=== PATIENT | female | born 1960 | race Caucasian/White ===

== ENCOUNTER 2018-07-13 17:09 | Emergency (ER) | payer OTHER ==
[~2018-07-13] VITALS: Ht 170.2 cm; Wt 71.0 kg
[~2018-07-13 17:09] MED LIST: FLEXERIL PO; HYDROCODONE-AP1 EAC6 PO; PROZAC20 MG PO
[2018-07-13] MEDS ORDERED: LEXAPRO 10 MG T10 M1 PO (17:35)
[2018-07-13] MEDS ORDERED: DEPAKOTE500 MG PO (17:35)
[2018-07-13] MEDS ORDERED: RISPERDAL 3 MG T3 M1 PO (17:36)
[2018-07-13] MEDS ORDERED: CLONAZEPAM 1 MG1 M1 PO (17:36)
[2018-07-13 17:38] LABS: URINE BILIRUBIN NEGATIVE (Negative); URINE BLOOD TRACE (Negative); URINE CLARITY CLEAR; URINE COLOR YELLOW; URINE GLUCOSE-RANDOM NEGATIVE (Negative); URINE KETONES 1+ (Negative); URINE LEUKOCYTES-REFLEX NEGATIVE (Negative); URINE NITRITE-REFLEX NEGATIVE (Negative); URINE PROTEIN NEGATIVE (Negative)
[2018-07-13 17:46] LABS: HEMATOCRIT 32.6 % (37.0-47.0); HEMOGLOBIN 11.2 gm/dL (12.0-15.0); MCH 32.9 pg (26.0-34.0); MCHC 34.5 g/dL (28.0-37.0); MCV 95.6 fL (80.0-100.0); MPV 8.1 fl. (7.2-11.1); NUCLEATED RBCS 0 /100WBC; PLATELET COUNT* 176 thou/uL (150-400); RBC 3.42 mil/uL (4.20-5.00); RDW-CV 13.9 % (10.5-14.5); WBC 10.7 thou/uL (4.0-11.0)
[2018-07-13 17:53] LABS: SQUAMOUS 0-3 Few /LPF (0-3)
[2018-07-13 17:54] LABS: BACTERIA-REFLEX None Seen /HPF (None Seen); CASTS None Seen /LPF (None Seen); CRYSTALS None Seen /LPF (None Seen); MUCUS 0-3 Light strn/LPF (None Seen); URINE RBC None Seen /HPF (0-2); URINE WBC-REFLEX None Seen /HPF (0-5)
[2018-07-13 18:07] LABS: ABSOLUTE EOSINOPHILS 0.1 thou/uL (0.0-0.7); ABSOLUTE LYMPHOCYTES 0.2 thou/uL (0.8-5.3); ABSOLUTE MONOCYTES 1.1 thou/uL (0.0-1.2); ABSOLUTE NEUTROPHILS 9.3 thou/uL (1.6-8.1); PLATELET ESTIMATE ADEQUATE
[2018-07-13 18:10] LABS: CALCIUM 8.7 mg/dL (8.5-10.1); CREATININE 0.7 mg/dL (0.6-1.3); POTASSIUM 3.9 mmol/L (3.5-5.1)
[2018-07-13 18:14] LABS: ALBUMIN 2.9 g/dL (3.4-5.0); TOTAL BILIRUBIN 0.3 mg/dL (<0.1-1.0); TOTAL PROTEIN 6.7 g/dL (6.4-8.2)
[2018-07-13] MEDS ORDERED: PREDNISONE50 MG PO (18:47)
[2018-07-13] MEDS ORDERED: NAPROSYN500 MG PO (18:47)
[2018-07-13] MEDS ORDERED: VENTOLIN HFA 1818 GM INH (18:47)
[2018-07-13] MEDS ORDERED: ZPAK PO (18:47)
[2018-07-13 19:18] VITALS: BP 135/75
== END 2018-07-13 19:19 | disposition home or self-care (01) ==
LOC: M.ERS 17:09
PROVIDERS: Nurse Practitioner Family
DX: J18.9 Pneumonia, unspecified organism (principal); M54.6 Pain in thoracic spine; R07.89 Other chest pain; F41.9 Anxiety disorder, unspecified